=== PATIENT | male | born 1955 | race Caucasian/White ===

== ENCOUNTER 2018-02-10 13:11 | Emergency (ER) | payer SELFPAY ==
[~2018-02-10] VITALS: Ht 177.8 cm; Wt 95.8 kg
[2018-02-10] MEDS ORDERED: MOTRIN800 MG PO (14:36)
[2018-02-10] MEDS ORDERED: VIBRAMYCIN100 MG PO (14:36)
[2018-02-10] MEDS ORDERED: LOTRISONE15 GM TP (14:45)
[2018-02-10 15:15] VITALS: BP 193/113
== END 2018-02-10 15:16 | disposition home or self-care (01) ==
LOC: EME 13:11
PROC: 0H98XZZ Drainage of Buttock Skin, External Approach (ICD-10-PCS; principal; 2018-02-10)
DX: L02.31 Cutaneous abscess of buttock (principal); L03.317 Cellulitis of buttock; I10 Essential (primary) hypertension; Z88.2 Allergy status to sulfonamides
CPT/HCPCS: 87070; 87075; 87077; 87147; 87186; 87205; 99281; 99284